=== PATIENT | female | born 1990 | race Caucasian/White ===

== ENCOUNTER 2017-02-24 22:41 | Emergency (ER) | payer MEDICAID ==
[~2017-02-24] VITALS: Ht 160 cm; Wt 108.0 kg
[2017-02-24 22:41] VITALS: BP_SYST 135
--- NOTE | 2017-02-24 23:00 | NUR ---
Patient to ER bed 5 to gown for evaluation. Side rails up. Assumed care of pt.
--- NOTE | 2017-02-24 23:10 | NUR ---
Pt. presented to ED with c/o allergic reaction to a "psoriasis cream she put on her face". Pt. denies SOB.
--- NOTE | 2017-02-25 00:18 | NUR ---
ER at bedside examining patient.
[2017-02-25 00:36] VITALS: BP_SYST 125
--- NOTE | 2017-02-25 00:36 | NUR ---
Patient given written and verbal discharge instructions and verbalizes understanding. ER MD discussed with patient the results and treatment provided. Patient in stable condition. ID arm band removed. Rx of Tylenol, Erythormycin given. Patient educated on pain management and to follow up with PMD. Pain Scale 0/10 Opportunity for questions provided and answered.
== END 2017-02-25 00:36 | disposition home or self-care (01) ==
LOC: SED 22:41
DX: O26.92 Pregnancy related conditions, unspecified, second trimester (principal); L03.211 Cellulitis of face; Z3A.17 17 weeks gestation of pregnancy; Z88.0 Allergy status to penicillin
CPT/HCPCS: 99283